=== PATIENT | female | born 1960 | race Two or more races ===

== ENCOUNTER 2020-07-20 08:01 | Emergency (ER) | payer OTHER, MEDICAID ==
[~2020-07-20] VITALS: Ht 162.6 cm; Wt 72.6 kg
[2020-07-20 08:04] VITALS: BP 114/60
[2020-07-20] MEDS ORDERED: ACETAMINOPHEN 325 MG TAB PO ONE (09:00)
== END 2020-07-20 09:10 | disposition home or self-care (01) ==
LOC: EDBD 08:01 → ER 08:01
DX: S20.212A Contusion of left front wall of thorax, initial encounter (principal); S09.90XA Unspecified injury of head, initial encounter; M25.561 Pain in right knee; R07.89 Other chest pain; M19.90 Unspecified osteoarthritis, unspecified site; V49.49XA Driver injured in collision with other motor vehicles in traffic accident, initial encounter; Y93.89 Activity, other specified; Y92.410 Unspecified street and highway as the place of occurrence of the external cause; Y99.8 Other external cause status
CPT/HCPCS: 70450; 71045; 93005

== ENCOUNTER 2023-05-24 08:20 | Inpatient (IN) | payer MEDICAID, OTHER ==
[~2023-05-24] VITALS: Ht 165.1 cm; Wt 67.2 kg
[~2023-05-24 08:20] MED LIST: ACETAMINOPHEN IV 1000 MG/100ML (10MG/ML) IV ONE; ALEN70TA74 PO; BUPIVACAINE HCL 50 ML ONE; CELECOXIB 100 MG CAP PO ONE; CHOL20004 PO; DexAMETHasone SOD PHOS 4 MG/1ML SDV INJ ONE; EPINEPHrine HCL 1 MG/1 ML AMP ONE; FOLI-119 PO; GABAPENTIN 400 MG CAP PO ONE; HYDR-4188 OR; IBUP-1455 PO; LOSA25TA15 PO; PRED10TA PO; TRAM50TA2 PO; ceFAZolin 2 GM/D5W100ml 100 ML IV ONE
[2023-05-24] MEDS ORDERED: PROPOFOL 10 MG/ML 20 ML IV ONE ×3 (09:02→11:18)
[2023-05-24] MEDS ORDERED: KETOROLAC TROMETH 30 MG/ML 1ML VIAL ONE (09:02)
[2023-05-24] MEDS ORDERED: GLYCOPYRROLATE 0.2 MG/ML 1ML VIAL ONE (09:02)
[2023-05-24] MEDS ORDERED: LIDOCAINE 2% (LOCAL ANESTH.) PF 5ml SDV ONE (09:02)
[2023-05-24] MEDS ORDERED: DexAMETHasone SOD PHOS 10MG/1ML VIAL INJ ONE (09:02)
[2023-05-24] MEDS ORDERED: ONDANSETRON HCL 4 MG/2 ML VIAL ONE (09:02)
[2023-05-24] MEDS ORDERED: TRANEXAMIC ACID 20 ML ONE (09:33)
[2023-05-24] MEDS ORDERED: ePHEDrine SULFATE 50 MG/ML AMP ONE (09:35)
[2023-05-24] MEDS ORDERED: SODIUM CHLORIDE LOCK 10 ML ONE (10:44)
[2023-05-24] MEDS ORDERED: VANCOMYCIN HCL 1000 MG VL ONE (10:57)
[2023-05-24] MEDS ORDERED: ACETAMINOPHEN 325 MG TAB PO PRN (11:45)
[2023-05-24] MEDS ORDERED: oxyCODONE HCL 5MG TAB PO PRN ×2 (11:45)
[2023-05-24 11:58] VITALS: O2SAT 100
[2023-05-24] MEDS ORDERED: ONDANSETRON HCL 4 MG/2 ML VIAL IV PRN (12:30)
[2023-05-24] MEDS ORDERED: hydrALAZINE HCL 20 MG/ML VL IV PRN (12:30)
[2023-05-24] MEDS ORDERED: ePHEDrine SULFATE 50 MG/ML AMP IV PRN (12:30)
[2023-05-24] MEDS ORDERED: fentaNYL CITRATE 100 MCG/2 ML VL IV PRN (12:30)
[2023-05-24] MEDS ORDERED: FLUMAZENIL 0.1 MG/ML INJ 10ML MDV IV PRN (12:30)
[2023-05-24] MEDS ORDERED: LABETALOL HCL 5 MG/ML 4ML SYRINGE IV PRN (12:30)
[2023-05-24] MEDS ORDERED: NALOXONE HCL 0.4 MG/ML VIAL IV PRN (12:30)
[2023-05-24] MEDS ORDERED: HYDROmorphone HCL 2 MG/ML VL/or syr IV PRN (12:30)
[2023-05-24] MEDS ORDERED: PHENYLEPHRINE HCL 10 MG/ML VL IV ONE (13:05)
[2023-05-24] MEDS: D5W/LACTATED RINGERS 1,000 ML IV SCH ×2 (15:00→21:35)
[2023-05-24 15:14] VITALS: BP 139/67; PULSE 68; RESP 16; TEMP 98.1; O2SAT 98
[2023-05-24] MEDS: KETOROLAC TROMETH 30 MG/ML 1ML VIAL IV SCH ×2 (16:00→16:58)
[2023-05-24] MEDS: ACETAMINOPHEN 325 MG TAB PO SCH ×2 (16:00→16:58)
[2023-05-24] MEDS: CHOLECALCIFEROL (VITD3) 2,000 UNIT CAP/TAB PO SCH (16:00)
[2023-05-24] MEDS: LOSARTAN POTASSIUM 25 MG TAB PO SCH (16:00)
[2023-05-24] MEDS: predniSONE 5 MG TAB PO SCH (16:00)
[2023-05-24] MEDS: ceFAZolin 2 GM/D5W100ml 100 ML IV SCH (16:22)
[2023-05-24 16:41] VITALS: BP 140/70; PULSE 65; RESP 16; TEMP 98.7; O2SAT 95
[2023-05-24 20:00] VITALS: PULSE 68; PULSE 73; RESP 17; O2SAT 94
[2023-05-24] MEDS: PREGABALIN 25 MG CAP PO SCH (21:35)
[2023-05-24 22:00] VITALS: BP 128/73; PULSE 68; RESP 17; TEMP 98.8; O2SAT 94
[2023-05-25] MEDS: KETOROLAC TROMETH 30 MG/ML 1ML VIAL IV SCH ×3 (00:08→11:57)
[2023-05-25] MEDS: ceFAZolin 2 GM/D5W100ml 100 ML IV SCH (00:08)
[2023-05-25] MEDS: ACETAMINOPHEN 325 MG TAB PO SCH ×3 (00:09→11:58)
[2023-05-25 05:00] VITALS: BP 136/55; PULSE 64; RESP 16; TEMP 98.6; O2SAT 97
[2023-05-25] MEDS: D5W/LACTATED RINGERS 1,000 ML IV SCH (07:45)
[2023-05-25 08:00] VITALS: PULSE 68
[2023-05-25 09:00] VITALS: BP 149/52; PULSE 69; RESP 20; TEMP 98.8; O2SAT 96
[2023-05-25] MEDS ORDERED: ASPirin 81 mg TAB PO SCH (10:00)
[2023-05-25] MEDS: PREGABALIN 25 MG CAP PO SCH (10:39)
[2023-05-25] MEDS: LOSARTAN POTASSIUM 25 MG TAB PO SCH (10:40)
[2023-05-25] MEDS: CHOLECALCIFEROL (VITD3) 2,000 UNIT CAP/TAB PO SCH (10:40)
[2023-05-25] MEDS: predniSONE 5 MG TAB PO SCH (10:40)
[2023-05-25 13:00] VITALS: BP 139/73; PULSE 72; RESP 20; TEMP 99.2; O2SAT 96
[2023-05-25 15:24] VITALS: BP 149/52; PULSE 70; RESP 16; TEMP 37.3
== END 2023-05-25 16:15 | disposition home or self-care (01) | DRG 470 ==
LOC: SUR 08:20 → TELE 11:41 → TELE-EAST 14:07
PROVIDERS: ADMIT Orthopaedic Surgery; ATTEND Orthopaedic Surgery
PROC: 0SRD069 Replacement of Left Knee Joint with Oxidized Zirconium on Polyethylene Synthetic Substitute, Cemented, Open Approach (ICD-10-PCS; principal; 2023-05-24 09:20)
DX: M17.12 Unilateral primary osteoarthritis, left knee (principal); M21.062 Valgus deformity, not elsewhere classified, left knee; M06.9 Rheumatoid arthritis, unspecified
CPT/HCPCS: 73562; 86850; 86900; 86901; 97110; 97116; 97163; 97530; G0378; J0131; J0171; J1100; J1885; J2001; J2405; J2704; J3490

== ENCOUNTER 2025-02-02 19:00 | Emergency (ER) | payer SELFPAY ==
[~2025-02-02] VITALS: Ht 165.1 cm; Wt 59.0 kg
[~2025-02-02 19:00] MED LIST changes: -ACETAMINOPHEN IV 1000 MG/100ML (10MG/ML) IV ONE; -BUPIVACAINE HCL 50 ML ONE; -CELECOXIB 100 MG CAP PO ONE; -DexAMETHasone SOD PHOS 4 MG/1ML SDV INJ ONE; -EPINEPHrine HCL 1 MG/1 ML AMP ONE; -GABAPENTIN 400 MG CAP PO ONE; -HYDR-4188 OR; +HYDR-4491 OR; +LOSA-533 PO; -LOSA25TA15 PO; -ceFAZolin 2 GM/D5W100ml 100 ML IV ONE
--- NOTE | 2025-02-02 20:15 | ED.PDOC ---
Musculoskeletal HPI Comments 64-year-old female who came to ER for upper extremity pain. Patient has a history of arthritis, has been on prednisone 10 mg for over 10 years. Also takes methotrexate and ibuprofen as necessary. For the past week, noted swelling and pain on her right wrist/ forearm. Denies any trauma to the aforementioned area. Denies any fever or chills. REVIEW OF SYSTEMS: No fever, no chills, or fatigue HEENT: No sore throat, no earache, no congestion, no neck pain. Cardiac: No chest pain. No palpitations. Lungs: No shortness of breath, no cough. GI: No nausea, no vomiting, no diarrhea, no constipation, no abdominal pain : No dysuria, frequency, or urgency. No hematuria. Musculoskeletal: No joint pain , no joint swelling, no extremity edema. (+) swelling right wrist/ forearm Skin: No rash, no itching. Neuro: No headache, no dizziness, no weakness PHYSICAL EXAM: General: Awake, alert and oriented. No acute distress. Skin: Skin in warm, dry and intact without rashes or lesions. HEENT: The head is normocephalic and atraumatic. Conjunctivae are clear without exudates or hemorrhage. Sclera is non-icteric. Neck: Normal range of motion. No JVD. Cardiac: Regular rate Respiratory: No signs of respiratory distress. No Stridor. Extremities: Right hand and wrist tender, swollen, edematous, erythematous with chronic rheumatoid changes. Radial pulse intact. Sensation intact. Neurological: The patient is awake, alert and oriented to person, place, and time with normal speech. Speech is clear. There is no facial asymmetry. Psychiatric: Appropriate mood and affect. Good judgement and insight. Chief Complaint: Upper Extremity Time Seen by MD: 20:15 Primary Care Provider: UNKNOWN Reviewed Notes: Nurses Notes Allergies: Coded Allergies: NO KNOWN ALLERGIES (Unverified , 07/20/20) Home Meds Active Scripts Cephalexin Monohydrate (Cephalexin) 500 Mg Tab, 2 TAB PO BID for 7 Days, #28 TAB Prov:LAURY SMITH MD 02/02/25 Tramadol HCl (Tramadol HCl) 50 Mg Tab, 50 MG PO TIDPRN PRN for 3 Days, #9 TAB Prov:LAURY SMITH MD 02/02/25 Reported Medications Tramadol Hcl (Tramadol Hcl) 50 Mg Tab, 100 MG PO PRN, TAB 05/18/23 Cholecalciferol (D3) 50 Mcg Cap, 50 MCG PO DAILY, CAP 05/18/23 Alendronate Sodium (Alendronate Sodium) 70 Mg Tab, 70 MG PO Q7D, TAB 05/18/23 Losartan Potassium (Losartan Potassium) 25 Mg Tab, 25 MG PO DAILY, TAB 05/18/23 Folic Acid (Folic Acid) 1 Mg Tab, 1 MG PO DAILY, TAB 05/18/23 Hydroxychloroquine Sulfate (PLAQUENIL) 200 Mg Tab, 200 MG OR BID, TAB 05/18/23 Prednisone (Prednisone) 10 Mg Tab, 10 MG PO DAILY, MG 05/18/23 Ibuprofen Micronized (Ibuprofen) 800 Mg Tab, 800 MG PO PRN, TAB 05/18/23 Information Source: Patient, Relative Mode of Arrival: Ambulatory Location: Right Extremity Location: Forearm, Wrist Timing: Days Severity: Moderate Mechanism: Spontaneous Circumstances: Arthritis Onset of Symptoms: Spontaneous Symptoms: Swelling, Pain History of: Arthritis Associated signs and symptoms: Wrist pain, Forearm pain Past Medical History PAST MEDICAL HISTORY: Arthritis, HTN Surgical History (Other): Bilateral knee surgery FRENCH BINDER History: No Pertinent FRENCH BINDER History Family History Family History: Reviewed,noncontributory to illness Social History Smoker: Non-Smoker Alcohol: Denies ETOH Use Drugs: Denies Drug Use Lives In: Home Was a procedure done? Was a procedure done?: No Differential Diagnosis EXT Differential Diagnosis: Cellulitis, Deep Vein Thrombosis, Fracture, Sprain, Arthritis X-Ray, Labs, Meds, VS Vital Signs Date Time Temp Pulse Resp B/P (MAP) Pulse Ox O2 Delivery O2 Flow Rate FiO2 02/02/25 23:55 98.5 71 19 187/78 (114) 98 98.5 02/02/25 21:01 98.5 69 18 176/72 (106) 98 98.5 02/02/25 21:01 69 18 98 Room Air 02/02/25 19:01 98.3 79 18 182/88 98 98.3 Lab Test 02/02/25 20:36 Range/Units White Blood Count 14.6 H 4.4-10.8 10^3/uL Red Blood Count 3.81 L 4.0-5.20 10^6/uL Hemoglobin 12.0 L 12.2-16.2 g/dL Hematocrit 35.6 L 36.0-46.0 % Mean Corpuscular Volume 93.3 80.0-100.0 fL Mean Corpuscular Hemoglobin 31.6 28.0-32.0 pg Mean Corpuscular Hemoglobin Concent 33.8 32.0-36.0 g/dL Red Cell Distribution Width 16.1 H 11.8-14.3 % Platelet Count 368 140-450 10^3/uL Mean Platelet Volume 6.8 L 6.9-10.8 fL Neutrophils (%) (Auto) 91.9 H 37.0-80.0 % Lymphocytes (%) (Auto) 3.9 L 10.0-50.0 % Monocytes (%) (Auto) 4.1 0.0-12.0 % Eosinophils (%) (Auto) 0.0 0.0-7.0 % Basophils (%) (Auto) 0.1 0.0-2.0 % Neutrophils # (Auto) 13.4 H 1.6-8.6 10 ^3/uL Lymphocytes # (Auto) 0.6 0.4-5.4 10 ^3/uL Monocytes # (Auto) 0.6 0-1.3 10 ^3/uL Eosinophils # (Auto) 0 0-0.8 10 ^3/uL Basophils # (Auto) 0 0-0.2 10 ^3/uL Nucleated Red Blood Cells 0.0 % [place] [address] Ph: [phone] DIAGNOSTIC IMAGING Diagnostic Imaging Report : [id number] Signed PATIENT: VALERIE PALUMBO ACCT: [id number] UNIT: [id number] : 1960 LOC: ER ROOM / BED: / AGE / SEX: 64 / F ADM STATUS: REG ER SERVICE 08 ORDERING PHYSICIAN: LAURY SMITH MD PROCEDURE(s): RUDVT - Rt Upper DVT REASON: r/u dvt ORDER NUMBER(s): [id number], ACCESSION NUMBER(s): [id number] RIGHT Upper Extremity Venous Duplex Clinical History: r/u dvt Comparison: None Technique: Duplex Doppler evaluation of the venous system of the RIGHT lower neck and upper extremity including color Doppler and spectral/pulsed waveform analysis was performed. Findings: The internal jugular vein demonstrates appropriate compressibility and waveform variability. The subclavian vein is patent on color Doppler evaluation without intraluminal thrombus and demonstrates waveform variability. The visualized portion of the brachiocephalic vein is patent on color Doppler evaluation without intraluminal thrombus and demonstrates waveform variability. The axillary vein demonstrates appropriate compressibility and waveform variability. The brachial veins demonstrate appropriate compressibility and patency on Doppler evaluation. The basilic vein demonstrates appropriate compressibility and patency on Doppler evaluation. The cephalic vein demonstrates appropriate compressibility and patency on Doppler evaluation. Impression: 1. No venous thrombus identified in the RIGHT upper extremity vessels evaluated above. 2. If clinical concern/symptoms persist or worsen, short-interval follow-up study is suggested. ATED BY: KVNG BLACKWELL Jr., DO DICTATED DATE/TIME: 02/02/252036 SIGNED BY: KVNG BLACKWELL Jr., DO SIGNED DATE/TIME: 02/02/252036 CC: [place] [id number] Ph: [phone] DIAGNOSTIC IMAGING Diagnostic Imaging Report : [id number] Signed PATIENT: VALERIE PALUMBO ACCT: [id number] UNIT: [id number] : 1960 LOC: ER ROOM / BED: / AGE / SEX: 64 / F ADM STATUS: REG ER SERVICE 08 ORDERING PHYSICIAN: LAURY SMITH MD PROCEDURE(s): RHAN - R HAND 3 VIEW XRAY REASON: swelling pain ORDER NUMBER(s): [id number], ACCESSION NUMBER(s): [id number] CLINICAL INDICATION: swelling pain TECHNIQUE: 3 radiographic views of the right hand were obtained. Comparison: None FINDINGS/IMPRESSION: There is fracture deformity of the distal ulna of unknown chronicity. Recommend correlation with point tenderness. Severe degenerative changes of the radiocarpal joint with moderate degenerative changes of the carpal joints. Moderate Soft tissue edema of the dorsal hand , wrist and distal forearm. Limited evaluation of the phalanges due to flexion at the interphalangeal joints. ATED BY: KAYY KENNEY DO DICTATED DATE/TIME: 02/02/252123 SIGNED BY: KAYY KENNEY DO SIGNED DATE/TIME: 02/02/252123 CC: Time of 1ST Reevaluation: 20:11 Reevaluation 1ST: Unchanged Patient Education/Counseling: Need For Follow Up Family Education/Counseling: Need For Follow Up Departure 1 Departure Time of Disposition: 22:34 Impression: Primary Impression: Right wrist pain Additional Impression: Cellulitis Disposition: 01 HOME / SELF CARE / HOMELESS Condition: Stable Additional Instructions: INSTRUCCIONES DE HADLEY DE URGENCIAS INSTRUCCIONES: ALETHA ATENTAMENTE TODAS LAS INSTRUCCIONES PROPORCIONADAS EN JENA PAQUETE. Bojorquez radiografa de hoy mostr vira fractura en el hueso de la mueca. Podra ser vira fractura jaimie. Es muy importante que consulte con bojorquez mdico de john para que lo derive a un especialista. Deber consultar con un reumatlogo y un cirujano ortopdico. [place] antibiticos rosalee los prximos rob para tiffany si el enrojecimiento y la inflamacin mejoran. Si el enrojecimiento y la inflamacin no mejoran, deber consultar con bojorquez mdico de john para recibir tratamiento adicional. Podra tener vira infeccin en la piel alrededor de la mueca y la mano. AUNQUE LE HAYAN DADO EL HADLEY DEL DEPARTAMENTO DE EMERGENCIAS, ESTO NO SIGNIFICA QUE TENGA UN "CERTIFICADO DE BUENA YUNIOR". HOY NO SE WALTERS REALIZADO NINGN DIAGNSTICO DEFINITIVO PARA HELIO SNTOMAS. ES POSIBLE QUE ESTS EN PROCESO DE DESARROLLAR VIRA ENFERMEDAD GRAVE. ES POR ESO QUE DEBE REGRESAR AL SERVICIO DE URGENCIAS SIN FALTA SI PRESENTA ALGN SNTOMA NUEVO O QUE EMPEORA (ESPECIALMENTE SI HELIO SNTOMAS INCLUYEN DOLOR EN EL PECHO, DIFICULTAD PARA RESPIRAR, DOLOR ABDOMINAL, FIEBRE, DOLOR DE ALISHA, CONFUSIN, DIFICULTAD PARA TIFFANY O CAMINAR). JAMAR ES MUY IMPORTANTE QUE CONSULTE A UN MDICO DE ATENCIN PRIMARIA DENTRO DE LOS PRXIMOS 1 A 3 ROB PARA REALIZAR UN SEGUIMIENTO. SI NO PUEDE CONSEGUIR VIRA ANNA, REGRESE AL SERVICIO DE URGENCIAS PARA VIRA NUEVA EVALUACIN. X-ray report: CLINICAL INDICATION: swelling pain TECHNIQUE: 3 radiographic views of the right hand were obtained. Comparison: None FINDINGS/IMPRESSION: There is fracture deformity of the distal ulna of unknown chronicity. Recommend correlation with point tenderness. Severe degenerative changes of the radiocarpal joint with moderate degenerative changes of the carpal joints. Moderate Soft tissue edema of the dorsal hand , wrist and distal forearm. Limited evaluation of the phalanges due to flexion at the interphalangeal joints. e-Prescriptions Cephalexin Monohydrate (Cephalexin) 500 Mg Tab 2 TAB PO BID for 7 Days, #28 TAB Prov: LAURY SMITH MD 02/02/25 Tramadol HCl (Tramadol HCl) 50 Mg Tab 50 MG PO TIDPRN PRN for 3 Days, #9 TAB Prov: LAURY SMITH MD 02/02/25 Comments MDM: 64-year-old female with redness and swelling of the right upper extremity. She is afebrile. Concerning for cellulitis. Patient discharged home with antibiotics and pain control. She is advised to follow up with primary care provider promptly for re-evaluation and to assess for improvement of her symptoms within a few days. Patient is felt stable for discharge home. She is nontoxic. She is advised to return to the ED with any new, worsening or concerning symptoms. I reviewed the following notes from the pt's past medical encounters: N/A The following tests were ordered, and results were reviewed by me: (See diagnostic results section) The following test were independently interpreted by me: N/A Additional information was gathered from interviewing the following independent historians: Patient's daughter at bedside I reviewed and agreed with the following test results read by other providers: N/A I discussed treatments and results with patient Decision regarding hospitalization or escalation of hospital level of care: Risks and benefits of admission for further treatment of patient's condition was considered however due to patient's stable condition patient will be discharged to follow up closely or return to care for worsening of condition or inability to follow up. Critical Care Note Critical Care Time?: No Stability Stability form required: No Heart Score Heart Score: Heart Score Response (Comments) Value History N/A 0 EKG N/A 0 Age N/A 0 Risk Factors N/A 0 Troponin N/A 0 Total 0 I personally scribed for LAURY SMITH MD ([email or web address]) on 02/02/25 at 20:15. Electronically submitted by Bob John ([email or web address]). LAURY SMITH MD Feb 02, 2025 20:15
--- NOTE | 2025-02-02 20:40 | DVH ---
RIGHT Upper Extremity Venous Duplex Clinical History: r/u dvt Comparison: None Technique: Duplex Doppler evaluation of the venous system of the RIGHT lower neck and upper extremity including color Doppler and spectral/pulsed waveform analysis was performed. Findings: The internal jugular vein demonstrates appropriate compressibility and waveform variability. The subclavian vein is patent on color Doppler evaluation without intraluminal thrombus and demonstra johnny waveform variability. The visualized portion of the brachiocephalic vein is patent on color Doppler evaluation without intr aluminal thrombus and demonstrates waveform variability. The axillary vein demonstrates appropriate compressibility and waveform variability. The brachial veins demonstrate appropriate compressibility and patency on Doppler evaluation. The basilic vein demonstrates appropriate compressibility and patency on Doppler evaluation. The cephalic vein demonstrates appropriate compressibility and patency on Doppler evaluation. Impression: 1. No venous thrombus identified in the RIGHT upper extremity vessels evaluated above. 2. If clinical concern/symptoms persist or worsen, short-interval follow-up study is suggested.
[2025-02-02 20:48] LABS: Hematocrit 35.6 % (36.0-46.0); Hemoglobin 12.0 g/dL (12.2-16.2); Mean Corpuscular Hemoglobin 31.6 pg (28.0-32.0); Mean Corpuscular Volume 93.3 fL (80.0-100.0); Nucleated Red Blood Cells % 0.0 %
[2025-02-02] MEDS: ACETAMINOPHEN 325 MG TAB PO ONE (20:58)
--- NOTE | 2025-02-02 21:26 | DVH ---
CLINICAL INDICATION: swelling pain TECHNIQUE: 3 radiographic views of the right hand were obtained. Comparison: None FINDINGS/IMPRESSION: There is fracture deformity of the distal ulna of unknown chronicity. Recommend correlation with poin t tenderness. Severe degenerative changes of the radiocarpal joint with moderate degenerative changes of the carpal joints. Moderate Soft tissue edema of the dorsal hand , wrist and distal forearm. Limited evaluation of the phalanges due to flexion at the interphalangeal joints.
[2025-02-02] MEDS ORDERED: TRAM-626 PO (22:42)
[2025-02-02] MEDS ORDERED: CEPH500T PO (22:42)
[2025-02-02] MEDS: cefTRIAXone SOD 1,000 MG VL IM ONE (23:38)
[2025-02-02] MEDS: LIDOCAINE 1% HCL (LOCAL ANESTH.) INJ 20ML MDV ONE (23:48)
[2025-02-02 23:55] VITALS: BP 187/78; PULSE 71; RESP 19; TEMP 98.5; O2SAT 98
== END 2025-02-02 23:56 | disposition home or self-care (01) ==
LOC: ER 19:00
DX: L03.113 Cellulitis of right upper limb (principal); M79.621 Pain in right upper arm; I10 Essential (primary) hypertension; Z79.899 Other long term (current) drug therapy
CPT/HCPCS: 36415; 73130; 85025; 93971; 96372; 99285; J0696; J2003